=== PATIENT | male | born 2000 | race American Indian/Alaskan Native ===

== ENCOUNTER 2022-12-19 07:02 | Emergency (ER) | payer MEDICAID | END 2022-12-19 08:20 | LOC: JP.ED 07:02 | DX: S60.222A Contusion of left hand, initial encounter (principal); Z86.16 Personal history of COVID-19; Z72.0 Tobacco use; W22.09XA Striking against other stationary object, initial encounter | CPT/HCPCS: 73090-26-RT; 73090-RT; 73130-26-LT; 73130-LT; 99283 ==